=== PATIENT | female | born 1970 | race Asian ===

== ENCOUNTER 2017-09-30 06:24 | Day surgery (SDC) | END 2017-09-30 12:16 | disposition home or self-care (01) ==

== ENCOUNTER 2018-07-10 17:52 | Emergency (ER) | payer OTHER ==
[~2018-07-10] VITALS: Wt 47.1 kg
[2018-07-10] MEDS ORDERED: SOD CHLORIDE 0.9% 1,000 ML IV STA (18:13)
[2018-07-10] MEDS ORDERED: ONDANSETRON 4 MG INJ IV STA (18:13)
[2018-07-10] MEDS ORDERED: morphine 4 MG/ML VIAL IV STA (18:13)
[2018-07-10] MEDS ORDERED: ONDA4TAB14 PO (19:45)
[2018-07-10] MEDS ORDERED: NAPR-985 PO (19:45)
--- NOTE | 2018-07-10 20:14 | ERD ---
ER Documentation Chief Complaint Chief Complaint lower abd pain radiates to back with n/v x4days HPI This patient is a 47-year-old female presenting to the emergency department complaining of lower abdominal pain which radiates to her back for the past 4 days. Pain is worse in the left lower quadrant. She has had some associated vomiting. Pain is rated 5/10 in severity and constant. She has history of similar symptoms in the past. Patient took ibuprofen at home with some relief. No other symptoms reported at this time. ROS All systems reviewed and are negative except as per history of present illness. Medications Home Meds Active Scripts Ondansetron (Ondansetron Odt) 4 Mg Tab.rapdis, 4 MG PO Q6H PRN for NAUSEA AND/OR VOMITING, #10 TAB Prov:RODRIGUEZ XIE PA-C 07/10/18 Naproxen* (Naprosyn*) 500 Mg Tablet, 500 MG PO BID PRN for PAIN AND/OR INFLAMMATION, #30 TAB Prov:RODRIGUEZ XIE PA-C 07/10/18 Allergies Allergies: Coded Allergies: No Known Allergy (Unverified , 09/30/17) PMhx/Soc History of Surgery: Yes (TUBAL LIGATION) Anesthesia Reaction: No Hx Neurological Disorder: No Hx Respiratory Disorders: No Hx Cardiac Disorders: No Hx Psychiatric Problems: No Hx Miscellaneous Medical Probl: No Hx Alcohol Use: No Hx Substance Use: No Hx Tobacco Use: No FmHx Family History: No diabetes Physical Exam Vitals Vital Signs Date Temp Pulse Resp B/P (MAP) Pulse Ox O2 O2 Flow FiO2 Time Delivery Rate 07/10/18 20 124/62 99 Room Air 19:08 (82) 07/10/18 98.8 79 20 135/69 100 17:56 (91) Physical Exam Const: No acute distress Head: Atraumatic Eyes: Normal Conjunctiva ENT: Normal External Ears, Nose and Mouth. Neck: Full range of motion. No meningismus. Resp: Clear to auscultation bilaterally Cardio: Regular rate and rhythm, no murmurs Abd: Soft, tenderness to palpation of the left lower quadrant, no rebound tenderness or guarding, no McBurney's point tenderness, non distended. Normal bowel sounds Skin: No petechiae or rashes Ext: No cyanosis, or edema Neur: Awake and alert Psych: Normal Mood and Affect Result Diagram: 07/10/18 1900 07/10/181899 Results 24 hrs Laboratory Tests Test 07/10/18 18:18 07/10/18 18:24 07/10/18 18:25 07/10/18 19:00 Urine Color YELLOW Urine Clarity CLEAR Urine pH 8.0 Urine Specific 1.011 [place] Urine Ketones NEGATIVE mg/dL Urine Nitrite NEGATIVE mg/dL Urine Bilirubin NEGATIVE mg/dL Urine Urobilinogen NEGATIVE mg/dL Urine Leukocyte NEGATIVE Lorelei/ul Esterase Urine Microscopic 4 /HPF RBC Urine Microscopic 1 /HPF WBC Urine Squamous FEW /HPF Epithelial Cells Urine Bacteria FEW /HPF Urine Hemoglobin 1+ mg/dL Urine Glucose NEGATIVE mg/dL Urine Total Protein NEGATIVE mg/dl Bedside Urine pH 8.0 (LAB) Bedside Urine Negative Protein (LAB) Bedside Urine Negative Glucose (UA) Bedside Urine Negative Ketones (LAB) Bedside Urine Blood 1+ Bedside Urine Negative Nitrite (LAB) Bedside Urine Negative Leukocyte Esterase (L POC Beta HCG, NEGATIVE Qualitative White Blood Count 4.0 10^3/ul Red Blood Count 4.30 10^6/ul Hemoglobin 12.2 g/dl Hematocrit 37.4 % Mean Corpuscular 87.0 fl Volume Mean Corpuscular 28.4 pg Hemoglobin Mean Corpuscular 32.6 g/dl Hemoglobin Concent Red Cell 12.8 % Distribution Width Platelet Count 213 10^3/UL Mean Platelet 10.0 fl Volume Immature 0.300 % Granulocytes % Neutrophils % 40.9 % Lymphocytes % 42.1 % Monocytes % 14.1 % Eosinophils % 2.3 % Basophils % 0.3 % Nucleated Red Blood 0.0 /100WBC Cells % Immature 0.010 10^3/ul Granulocytes # Neutrophils # 1.6 10^3/ul Lymphocytes # 1.7 10^3/ul Monocytes # 0.6 10^3/ul Eosinophils # 0.1 10^3/ul Basophils # 0.0 10^3/ul Nucleated Red Blood 0.0 10^3/ul Cells # Prothrombin Time 11.8 Sec Prothrombin Time 0.9 Ratio INR International 0.86 Normalized Ratio Activated 28.9 Sec Partial Thromboplas t Time Sodium Level 139 mmol/L Potassium Level 3.5 mmol/L Chloride Level 107 mmol/L Carbon Dioxide 24 mmol/L Level Anion Gap 8 Blood Urea Nitrogen 10 mg/dl Creatinine 0.55 mg/dl Est Glomerular > 60 mL/min Filtrat Rate mL/min Glucose Level 97 mg/dl Calcium Level 9.1 mg/dl Total Bilirubin 0.0 mg/dl Direct Bilirubin 0.00 mg/dl Indirect Bilirubin 0.0 mg/dl Aspartate Amino 18 IU/L Transf (AST/SGOT) Alanine 13 IU/L Aminotransferase (A LT/SGPT) Alkaline 47 IU/L Phosphatase Total Protein 6.9 g/dl Albumin 3.9 g/dl Globulin 3.00 g/dl Albumin/Globulin 1.30 Ratio Lipase 125 U/L Current Medications Medications Dose Sig/Laurie Start Time Status Last (Trade) Ordered Route PRN Stop Time Admin Dose Reason Admin Sodium 1,000 ml @ Q1H STAT 07/10/18 DC 07/10/18 Chloride 1,000 mls/hr IV 18:13 07/10/18 19:10 19:12 Morphine 4 mg ONCE STAT 07/10/18 DC 07/10/18 Sulfate IV 18:13 07/10/18 19:10 (morphine) 18:15 Ondansetron 4 mg ONCE STAT 07/10/18 DC 07/10/18 HCl (Zofran IV 18:13 07/10/18 19:09 Inj) 18:15 Procedures/MDM This patient is a 47-year-old female presenting to the emergency department complaining of left lower quadrant abdominal pain. Workup was obtained. Patient was administered IV morphine with good response. On reevaluation she was significantly improved. CBC: no e/o of systemic infection or severe anemia CMP: no e/o severe acidosis, alkalosis, renal failure, diabetic ketoacidosis, liver disease Lipase: no e/o pancreatitis PT/INR: normal coagulation Urine: no e/o acute infection or hematuria Medical decision making: Patient symptoms may be secondary to musculoskeletal etiology. Patient's gastrointestinal symptoms have stabilized while in the department. No evidence of severe dehydration, sepsis, or surgical abdomen. Extensive discussion with family and patient that occult disease cannot be ruled out. 8 hour recheck for repeat abdominal exam is planned. No evidence of life-threatening pathology at time of discharge. Pt/family in agreement with discharge plan/diagnosis. Pt/family advised to return immediately with any new or worsening symptoms. Follow-up with primary care physician within the next 1-2 days. Disclaimer: Inadvertent spelling and grammatical errors are likely due to EHR/dictation software use and do not reflect on the overall quality of patient care. Also, please note that the electronic time recorded on this note does not necessarily reflect the actual time of the patient encounter. Departure Diagnosis: Primary Impression: Abdominal pain Abdominal location: left lower quadrant Qualified Codes: R10.32 - Left lower quadrant pain Condition: Fair Patient Instructions: Abdominal Pain Additional Instructions: Call your primary care doctor TOMORROW for an appointment during the next 1-2 days.See the doctor sooner or return here if your condition worsens before your appointment time. RODRIGUEZ XIE PA-C Jul 10, 2018 20:14
[2018-07-10 20:15] VITALS: BP 141/63; PULSE 85; RESP 20
== END 2018-07-10 20:16 | disposition home or self-care (01) ==
LOC: FTE 17:52
DX: R10.32 Left lower quadrant pain (principal); R11.2 Nausea with vomiting, unspecified; R10.2 Pelvic and perineal pain
CPT/HCPCS: 36415; 74176; 80053; 81001; 81025; 83690; 85025; 85610; 85730; 96361; 96374; 96375; J2270; J2405; J7030; Z7502; 81003

== ENCOUNTER 2019-03-29 06:31 | Inpatient (IN) | payer OTHER ==
[2019-03-29] VITALS (21 sets, daily range): BP systolic 105–125; BP diastolic 54–85; PULSE 60–102; RESP 12–24; Ht 152.4 cm; Wt 47.3 kg
[~2019-03-29] VITALS: Ht 152.4 cm; Wt 47.3 kg
[~2019-03-29 06:31] MED LIST: CEFAZOLIN 2 GM/50 ML (PMX) 50 ML IVPB SCH; CIPR500T4 PO; METR500T PO; NAPR-985 PO; ONDA4TAB14 PO; PANT40TA3 PO; SOD CHLORIDE 0.9% 1,000 ML IV SCH
[2019-03-29] MEDS ORDERED: LIDOCAINE 1% (MPF) 30 ML INJ ONE (09:03)
[2019-03-29] MEDS ORDERED: BUPIVACAINE 0.25%/EPI (MDV) 50 ML VIAL INJ ONE (09:03)
[2019-03-29] MEDS ORDERED: LIDOCAINE 1%/EPI 30 ML INJ ONE (09:15)
[2019-03-29] MEDS ORDERED: HYDROmorphONE 1 MG/5 ML IV SYRINGE IV PRN ×3 (09:30)
[2019-03-29] MEDS ORDERED: ROCURONIUM 50 MG INJ ONE ×2 (09:33→09:50)
[2019-03-29] MEDS ORDERED: DESFLURANE 15 MIN ONE (09:33)
[2019-03-29] MEDS ORDERED: MIDAZOLAM 1 MG/ML 2 ML INJ ONE (09:33)
[2019-03-29] MEDS ORDERED: LIDOCAINE 2% (SDV) 5 ML INJ ONE (09:33)
[2019-03-29] MEDS ORDERED: FENTAnyl 50 MCG/ML VIAL ONE (09:33)
[2019-03-29] MEDS ORDERED: PROPOFOL 20 ML ONE (09:33)
[2019-03-29] MEDS ORDERED: CEFAZOLIN 1 GM INJ ONE ×2 (09:50→10:08)
[2019-03-29] MEDS ORDERED: ONDANSETRON 4 MG INJ ONE ×2 (09:50→11:51)
[2019-03-29] MEDS ORDERED: CIPROFLOXACIN 400MG/D5W 200 ML ONE (09:51)
[2019-03-29] MEDS ORDERED: metroNIDAZOLE 500 MG/NS (PMX) 100 ML IVPB ONE (09:51)
[2019-03-29] MEDS ORDERED: KETOROLAC 30 MG INJ ONE (10:09)
[2019-03-29] MEDS ORDERED: SILVER SULFADIAZINE 1% 25 GM CR ONE (11:14)
[2019-03-29] MEDS ORDERED: SUGAMMADEX SODIUM 200 MG/2 ML VIAL IV ONE (11:24)
[2019-03-29] MEDS ORDERED: ONDANSETRON 4 MG INJ IV STA (11:52)
[2019-03-29] MEDS ORDERED: morphine 2 MG INJ IV PRN (12:00)
[2019-03-29] MEDS: LACTATED RINGER'S 1,000 ML IV SCH ×2 (12:25→12:46)
[2019-03-29] MEDS: metroNIDAZOLE 500 MG/NS (PMX) 100 ML IVPB SCH ×2 (13:40→22:43)
[2019-03-29] MEDS: HYDROCODONE/APAP (5/325) TAB PO PRN ×2 (16:56→22:14)
[2019-03-29] MEDS: CIPROFLOXACIN 250 MG TAB PO SCH (17:19)
[2019-03-29] MEDS: ONDANSETRON 4 MG INJ IV PRN (20:32)
[2019-03-30] MEDS ORDERED: SILVER SULFADIAZINE 1% 25 GM CR TOP PRN (00:30)
[2019-03-30] MEDS ORDERED: PANTOPRAZOLE 40 MG INJ IV ONE (00:30)
[2019-03-30 00:35] VITALS: BP 99/55; PULSE 98; RESP 16
[2019-03-30] MEDS: HYDROCODONE/APAP (5/325) TAB PO PRN ×3 (04:38→16:44)
[2019-03-30] MEDS: PANTOPRAZOLE 40 MG INJ IV SCH (06:00)
[2019-03-30] MEDS: metroNIDAZOLE 500 MG/NS (PMX) 100 ML IVPB SCH ×3 (06:50→22:44)
[2019-03-30] MEDS: CIPROFLOXACIN 250 MG TAB PO SCH ×2 (06:51→17:19)
[2019-03-30] MEDS: ONDANSETRON 4 MG INJ IV PRN ×2 (07:54→22:43)
[2019-03-30 08:00] VITALS: BP 122/63; PULSE 77; RESP 18
[2019-03-30] MEDS: D5W-0.45 NACL + KCL 20 MEQ 1,000 ML IV SCH (14:24)
[2019-03-30 14:27] VITALS: BP 129/60; PULSE 68; RESP 19
[2019-03-30 20:52] VITALS: BP 133/69; PULSE 58; RESP 18
[2019-03-31 02:51] VITALS: BP 125/62; PULSE 55; RESP 19
[2019-03-31] MEDS: D5W-0.45 NACL + KCL 20 MEQ 1,000 ML IV SCH ×3 (02:59→20:00)
[2019-03-31] MEDS: HYDROCODONE/APAP (5/325) TAB PO PRN ×2 (03:05→12:50)
[2019-03-31] MEDS: CIPROFLOXACIN 250 MG TAB PO SCH ×2 (06:07→18:24)
[2019-03-31] MEDS: ONDANSETRON 4 MG INJ IV PRN (06:07)
[2019-03-31] MEDS: metroNIDAZOLE 500 MG/NS (PMX) 100 ML IVPB SCH ×3 (06:07→21:18)
[2019-03-31] MEDS: PANTOPRAZOLE 40 MG INJ IV SCH (06:07)
[2019-03-31 08:25] VITALS: BP 115/62; PULSE 66; RESP 18
[2019-03-31 15:02] VITALS: BP 135/70; PULSE 71; RESP 18
[2019-03-31 20:00] VITALS: BP 134/60; PULSE 66; RESP 18
[2019-03-31] MEDS: MINERAL OIL 30ML CUP PO SCH (21:18)
[2019-04-01 02:00] VITALS: BP 121/71; PULSE 75; RESP 15
[2019-04-01] MEDS: D5W-0.45 NACL + KCL 20 MEQ 1,000 ML IV SCH ×2 (05:33→17:25)
[2019-04-01] MEDS: CIPROFLOXACIN 250 MG TAB PO SCH ×2 (05:33→17:24)
[2019-04-01] MEDS: PANTOPRAZOLE 40 MG INJ IV SCH ×2 (05:33→21:39)
[2019-04-01] MEDS: metroNIDAZOLE 500 MG/NS (PMX) 100 ML IVPB SCH ×2 (05:33→14:13)
[2019-04-01 08:18] VITALS: BP 104/70; PULSE 112; RESP 15
[2019-04-01] MEDS: MINERAL OIL 30ML CUP PO SCH ×3 (08:25→21:39)
[2019-04-01 15:43] VITALS: BP 120/71; PULSE 71; RESP 15
[2019-04-01 19:18] VITALS: BP 118/73; PULSE 77; RESP 18
[2019-04-01] MEDS: metroNIDAZOLE 500 MG TAB PO SCH (21:39)
[2019-04-02] VITALS (11 sets, daily range): BP systolic 107–173; BP diastolic 59–73; PULSE 62–80; RESP 16–23
[2019-04-02] MEDS: D5W-0.45 NACL + KCL 20 MEQ 1,000 ML IV SCH ×2 (02:00→08:02)
[2019-04-02] MEDS: CIPROFLOXACIN 250 MG TAB PO SCH ×2 (06:00→18:29)
[2019-04-02] MEDS: metroNIDAZOLE 500 MG TAB PO SCH ×3 (06:00→22:02)
[2019-04-02] MEDS: MINERAL OIL 30ML CUP PO SCH ×3 (08:45→22:02)
[2019-04-02] MEDS: PANTOPRAZOLE 40 MG INJ IV SCH (09:20)
[2019-04-02] MEDS: WITCH HAZEL/GLYCERIN PAD PR PRN (10:47)
[2019-04-02] MEDS ORDERED: PROPOFOL 20 ML ONE (12:03)
[2019-04-02] MEDS ORDERED: DEXTROSE 5%-0.45% NACL 1,000 ML IV SCH (18:00)
[2019-04-02] MEDS: HYDROCODONE/APAP (5/325) TAB PO PRN (22:09)
[2019-04-03 01:47] VITALS: BP 122/60; PULSE 81; RESP 20
[2019-04-03] MEDS: CIPROFLOXACIN 250 MG TAB PO SCH (06:32)
[2019-04-03] MEDS: metroNIDAZOLE 500 MG TAB PO SCH (06:32)
[2019-04-03 09:08] VITALS: BP 110/56; PULSE 79; RESP 18
[2019-04-03] MEDS: MINERAL OIL 30ML CUP PO SCH (09:45)
[2019-04-03] MEDS: WITCH HAZEL/GLYCERIN PAD PR PRN (09:45)
[2019-04-03] MEDS: HYDROCODONE/APAP (5/325) TAB PO PRN (09:50)
== END 2019-04-03 13:00 | disposition home or self-care (01) | DRG 349 ==
LOC: SDS 06:31 → REC 12:02 → UNDOADMOB 12:02 → MS1 12:36 → REC 12:36 → MS1 03-30 22:54 → OBSVTOIN 03-31 19:12
PROC: 06LY0ZC Occlusion of Hemorrhoidal Plexus, Open Approach (ICD-10-PCS; 2019-03-29)
PROC: 06BY0ZC Excision of Hemorrhoidal Plexus, Open Approach (ICD-10-PCS; principal; 2019-03-29 09:00)
PROC: 0DB68ZX Excision of Stomach, Via Natural or Artificial Opening Endoscopic, Diagnostic (ICD-10-PCS; 2019-04-02)
PROC: 0DB78ZX Excision of Stomach, Pylorus, Via Natural or Artificial Opening Endoscopic, Diagnostic (ICD-10-PCS; 2019-04-02)
DX: K64.8 Other hemorrhoids (principal); K64.4 Residual hemorrhoidal skin tags; K29.40 Chronic atrophic gastritis without bleeding; K86.9 Disease of pancreas, unspecified; R10.11 Right upper quadrant pain; R11.2 Nausea with vomiting, unspecified
CPT/HCPCS: 74181; 76705; 80053; 84703; 85025; 85610; 85730; 88304; 88305; 88312; C9113; G0378; J0690; J0744; J1170; J1885; J2250; J2270; J2405; J3010; J3480; J7042; J7120